=== PATIENT | female | born 1975 | race American Indian/Alaskan Native ===

== ENCOUNTER 2017-09-06 13:05 | Outpatient (CLI) | payer OTHER ==
--- NOTE | 2017-09-07 15:08 | Magnetic Resonance Report ---
BILATERAL BREAST MRI WITHOUT AND WITH CONTRAST: 09/06/17 13:05:00 CLINICAL: Status post bilateral reduction mammoplasty. Left breast mass with calcifications. COMPARISON:[facility] mammograms from August 2016 and October 2016. TECHNIQUE: Axial 1.0-mm T1 without, axial high resolution 2.0-mm T2 and axial 1.0-mm dynamic Vibrant high-resolution postcontrast T1 fat saturation sequences on a 1.5 [place] magnet. The examination was performed with an 8 channel dedicated [place] breast coil. Post processing with CAD and subtraction was performed on an [employer] workstation. 15.0 cc of Multihance was injected without incident for the contrast portion of the exam. Consent was obtained prior to the administration of the contrast. FINDINGS: Right: Moderate background parenchymal enhancement. No mass or suspicious enhancement. No suspicious lymph nodes. Left: Moderate background parenchymal enhancement. An oval slightly irregular enhancing mass at 12 o'clock 8.7 cm from the nipple measures 1.1 x 0.8 x 0.7 cm. It correlates with a mammographic mass with dystrophic calcifications. It demonstrates heterogeneous enhancement with 185% peak enhancement and mixed kinetics with 3% type III washout. No other mass or suspicious enhancement of the left breast. No suspicious lymph nodes. IMPRESSION: 1. A benign 1.1 cm left breast mass at 12 o'clock. The MRI characteristics and sonographic characteristics are typical of benign fat necrosis. 2. Negative right breast. 3. Recommend routine annual screening mammography and management of bilateral breast calcifications based on the mammographic findings. According to the records that I have, she is due for a bilateral mammogram. BI-RADS 2 -- Benign
== END 2017-09-06 13:06 | disposition home or self-care (01) ==
LOC: SPVIMAG 13:05
PROVIDERS: ATTEND Obstetrics & Gynecology
DX: N63.20 Unspecified lump in the left breast, unspecified quadrant (principal); R92.0 Mammographic microcalcification found on diagnostic imaging of breast; Z98.890 Other specified postprocedural states
CPT/HCPCS: A9577; C8908; 77059